=== PATIENT | female | born 1990 | race Caucasian/White ===

== ENCOUNTER 2017-01-20 11:40 | Inpatient (IN) | payer OTHER ==
[2017-01-29] MEDS ORDERED: STADOL IV PRN ×2 (23:28)
[2017-01-29] MEDS ORDERED: PEPCID PO PRN (23:28)
[2017-01-29] MEDS ORDERED: KEFZOL 1 GM/D5W 50 ML IV PRN (23:28)
[2017-01-29] MEDS ORDERED: PEPCID IV PRN (23:28)
[2017-01-29] MEDS ORDERED: TYLENOL PO PRN (23:28)
[2017-01-29] MEDS ORDERED: AMBIEN PO PRN (23:28)
[2017-01-29] MEDS ORDERED: ZOFRAN IV PRN (23:28)
[2017-01-29] MEDS ORDERED: BRETHINE SUBQ PRN (23:28)
[2017-01-29] MEDS: LR 1,000 ML IV SCH (23:54)
[2017-01-30] MEDS ORDERED: CYTOTEC PO ONE
[2017-01-30 00:11] LABS: MANUAL DIFF NEEDED? NO
[2017-01-30 00:11] LABS: URINE SOURCE VOIDED
[2017-01-30 00:26] LABS: BILIRUBIN URINE NEGATIVE (NEGATIVE); BLOOD URINE NEGATIVE (NEGATIVE); CLARITY CLEAR (CLEAR); COLOR YELLOW; GLUCOSE URINE NEGATIVE (NEGATIVE); LEUKOCYTES URINE 1+ (NEGATIVE); NITRITE URINE NEGATIVE (NEGATIVE); PROTEIN URINE NEGATIVE (NEGATIVE); UROBILINOGEN URINE NORMAL
[2017-01-30 00:32] LABS: BASO% 0.2 % (0.0-0.8); EOS# 0.15 X1000 (0.0-0.7); EOS% 1.7 % (0.0-10.0); HEMATOCRIT 41.2 % (37.0-47.0); HEMOGLOBIN 14.4 g/dL (12.0-16.0); IMM GRAN# 0.07 X1000 (0.0-0.04); IMM GRAN% 0.8 % (0.0-0.5); LYMPH# 3.07 X1000 (1.2-3.4); LYMPH% 33.8 % (20.5-51.1); MCV 88.8 FL (81-99); MONO# 0.67 X1000 (0.11-0.59); MONO% 7.4 % (1.7-9.3); MPV 10.6 FL (7.4-10.4); NEUT% 56.1 % (42.2-75.2); PLT 280 X1000 (130-400); RBC 4.64 XMIL (4.2-5.4)
[2017-01-30] MEDS ORDERED: CYTOTEC PO SCH (04:00)
[2017-01-30] MEDS ORDERED: PITOCIN 30 UNITS/LR 500 ML IV SCH (07:00)
[2017-01-30] MEDS ORDERED: REGLAN ONE (09:05)
[2017-01-30] MEDS ORDERED: BICITRA ONE (09:06)
[2017-01-30] MEDS: STADOL IV PRN ×3 (12:22→15:42)
[2017-01-30] MEDS ORDERED: XYLOCAINE-MPF 1% ONE (14:48)
[2017-01-30] MEDS ORDERED: MINERAL OIL ONE (14:49)
[2017-01-30] MEDS: LR 1,000 ML IV SCH (14:51)
[2017-01-30] MEDS ORDERED: PITOCIN 30 UNITS/LR 500 ML IV ONE (15:47)
[2017-01-30] MEDS ORDERED: MINERAL OIL MISC PRN (15:47)
[2017-01-30] MEDS ORDERED: BOOSTRIX VACCINE IM ONE (15:47)
[2017-01-30] MEDS ORDERED: NORCO-5 PO PRN (15:47)
[2017-01-30] MEDS ORDERED: HYDROXYZINE PO PRN (15:47)
[2017-01-30] MEDS ORDERED: CYTOTEC PO PRN (15:47)
[2017-01-30] MEDS ORDERED: BENADRYL IV PRN (15:47)
[2017-01-30] MEDS ORDERED: XYLOCAINE-MPF 1% INJ PRN (15:47)
[2017-01-30] MEDS ORDERED: AMBIEN PO PRN (15:47)
[2017-01-30] MEDS ORDERED: PERI MEDS (DERMOPLAST/NUPERCAINAL/TUCKS) MISC PRN (15:47)
[2017-01-30] MEDS ORDERED: BENADRYL PO PRN (15:47)
[2017-01-30] MEDS ORDERED: HYDROXYZINE IM PRN (15:47)
[2017-01-30] MEDS ORDERED: NORCO-10 PO PRN (15:47)
[2017-01-30] MEDS ORDERED: M-M-R II VACCINE SUBQ ONE (15:47)
[2017-01-30] MEDS ORDERED: PITOCIN IM PRN (15:47)
[2017-01-30] MEDS ORDERED: PITOCIN 20 UNITS/LR 1,000 ML IV SCH (16:00)
[2017-01-30] MEDS: PERICOLACE PO SCH (20:45)
[2017-01-31 05:58] LABS: HEMATOCRIT 36.8 % (37.0-47.0); HEMOGLOBIN 12.3 g/dL (12.0-16.0); MCH 30.5 PG (27-31); MCHC 33.4 g/dL (33-37); MCV 91.3 FL (81-99); MPV 10.5 FL (7.4-10.4); RBC 4.03 XMIL (4.2-5.4)
[2017-01-31] MEDS: MOTRIN PO PRN (06:56)
[2017-01-31] MEDS: PERICOLACE PO SCH (20:59)
[2017-02-01] MEDS: MOTRIN PO PRN (04:12)
[2017-02-01 08:24] VITALS: BP 104/78
== END 2017-02-01 14:30 | disposition home or self-care (01) | DRG 775 ==
LOC: P.LD 01-29 22:38 → P.WC 01-30 18:46
PROVIDERS: ADMIT Obstetrics & Gynecology; ATTEND Obstetrics & Gynecology
PROC: 10E0XZZ Delivery of Products of Conception, External Approach (ICD-10-PCS; principal; 2017-01-30)
PROC: 3E033VJ Introduction of Other Hormone into Peripheral Vein, Percutaneous Approach (ICD-10-PCS; 2017-01-30)
PROC: 10907ZC Drainage of Amniotic Fluid, Therapeutic from Products of Conception, Via Natural or Artificial Opening (ICD-10-PCS; 2017-01-30)
DX: O69.1XX0 Labor and delivery complicated by cord around neck, with compression, not applicable or unspecified (principal); O48.0 Post-term pregnancy; O71.82 Other specified trauma to perineum and vulva; Z37.0 Single live birth; Z3A.41 41 weeks gestation of pregnancy
CPT/HCPCS: 59025; 81003; 85025; 85027; 86592; J0595; J2405; J2590; J2765; J7120